=== PATIENT | male | born 1970 | race African-American/Black ===

== ENCOUNTER 2022-08-24 17:57 | Inpatient (IN) | payer OTHER ==
[~2022-08-24] VITALS: Ht 170.2 cm; Wt 48.5 kg
[2022-08-24] MEDS ORDERED: NS 500 ML IV ONE (19:40)
[2022-08-24] MEDS ORDERED: oxyCODONE 5MG TAB PO ONE (19:40)
[2022-08-24] MEDS ORDERED: SODIUM CHLORIDE 0.9% INJ 10 ML SYR IV PRN (19:55)
[2022-08-24 20:43] LABS: BASO % 0.2 % (0.0-1.0); EOS # 0.1 10^3/uL (0.0-0.5); EOS % 0.7 % (0.0-3.0); HEMATOCRIT 33.5 % (42.0-52.0); HEMOGLOBIN 11.1 g/dl (13.5-17.5); LYMPH # 1.4 10^3/uL (1.5-5.0); LYMPH % 17.6 % (24.0-44.0); MEAN CORPUSCULAR HGB CONC 33.1 g/dl (32.0-36.5); MEAN CORPUSCULAR VOLUME 102.8 fl (80.0-96.0); MONO % 12.3 % (2.0-8.0); NEUTROPHILS # 5.6 10^3/uL (1.5-8.5); PLATELET COUNT, AUTOMATED 241 10^3/uL (150-450); RED BLOOD COUNT 3.26 10^6/uL (4.30-6.10); WHITE BLOOD COUNT 8.1 10^3/uL (4.0-10.0)
[2022-08-24 21:16] LABS: LIPASE 16 U/L (12-53)
[2022-08-24 21:17] LABS: CK-MB VALUE MASS 2.5 NG/ML (<3.6)
[2022-08-24 21:18] LABS: CPK CREATINE PHOSPHOKINASE 30 U/L (46-171); MB/CK RELATIVE INDEX 8.33 (< OR =4)
[2022-08-24 21:52] LABS: ALBUMIN 2.7 G/DL (3.2-5.2); ALKALINE PHOSPHATASE 102 U/L (46-116); ALT/SGPT < 9 U/L (7.0-40); AST/SGOT 20 U/L (<34); BILIRUBIN,DIRECT 0.1 MG/DL (<0.4); BILIRUBIN,TOTAL 0.3 MG/DL (0.3-1.2); BLOOD UREA NITROGEN 35 MG/DL (9-23); CARBON DIOXIDE LEVEL 29 MMOL/L (20-31); CHLORIDE LEVEL 99 MMOL/L (98-107); CREATININE FOR GFR 1.35 MG/DL (0.70-1.30); GLOMERULAR FILTRATION RATE > 60.0 (>56); GLUCOSE, FASTING 101 MG/DL (60-100); SODIUM LEVEL 134 MMOL/L (136-145); TOTAL PROTEIN 7.1 G/DL (5.7-8.2)
[2022-08-24 22:14] LABS: CK-MB VALUE MASS 2.9 NG/ML (<3.6)
[2022-08-24 22:15] LABS: MB/CK RELATIVE INDEX 7.83 (< OR =4)
[2022-08-24 22:18] LABS: CALCIUM LEVEL 16.4 MG/DL (8.5-10.1)
[2022-08-25] VITALS (29 sets, daily range): BP systolic 103–149; BP diastolic 59–87; TEMP 97–99; O2SAT 86–100
[2022-08-25] LABS: RSV AMPLIFICATION NEGATIVE (NEGATIVE)
[2022-08-25] MEDS ORDERED: HYDROMORPHONE HCL 0.5 MG/ 0.5 ML SYRINGE IV PRN ×2 (00:50→16:10)
[2022-08-25] MEDS ORDERED: NS 1,000 ML IV ONE (01:15)
[2022-08-25] MEDS ORDERED: ZOLEDRONIC ACID 4 MG in IV 1 EA IV ONE (02:00)
[2022-08-25] MEDS: NS 1,000 ML IV SCH ×4 (03:05→22:25)
[2022-08-25] MEDS: HYDROMORPHONE HCL 0.5 MG/ 0.5 ML SYRINGE IV PRN ×6 (03:21→23:56)
[2022-08-25] MEDS: ONDANSETRON 4MG 2ML VIAL IV PRN ×3 (03:49→19:28)
[2022-08-25] MEDS ORDERED: SUCR1TAB56 PO (06:58)
[2022-08-25] MEDS ORDERED: BENZ-18 PO (06:58)
[2022-08-25] MEDS ORDERED: MIRT1TAB PO (06:58)
[2022-08-25] MEDS ORDERED: FAMO1TAB11 PO (06:58)
[2022-08-25] MEDS ORDERED: OMEP40CA4 PO (06:58)
[2022-08-25] MEDS ORDERED: OXYC10TA12 PO (06:58)
[2022-08-25] MEDS ORDERED: MELA3TAB30 PO (06:58)
[2022-08-25] MEDS ORDERED: LORA-674 PO (06:58)
[2022-08-25] MEDS ORDERED: ATOR80TA59 PO (06:58)
[2022-08-25] MEDS ORDERED: MAGN400T35 PO (06:58)
[2022-08-25] MEDS ORDERED: HOME MED LIST COMPLETE! XX SCH (07:00)
[2022-08-25 07:06] LABS: BLOOD UREA NITROGEN 34 MG/DL (9-23); CARBON DIOXIDE LEVEL 24 MMOL/L (20-31); CHLORIDE LEVEL 106 MMOL/L (98-107); CREATININE FOR GFR 1.34 MG/DL (0.70-1.30); GLOMERULAR FILTRATION RATE > 60.0 (>56); GLUCOSE, FASTING 88 MG/DL (60-100); POTASSIUM SERUM 4.3 MMOL/L (3.5-5.1); SODIUM LEVEL 136 MMOL/L (136-145)
[2022-08-25] MEDS: ASPIRIN 81MG CHEW TABLET PEG SCH ×2 (09:00→09:16)
[2022-08-25] MEDS: METOPROLOL TART 12.5 MG PER 1/2 TAB PO SCH ×2 (09:00→09:17)
[2022-08-25] MEDS ORDERED: CALCITONIN SALMON (MIACALCIN) 400INTERNATIONAL UNITS/2ML VIAL SC ONE (09:00)
[2022-08-25] MEDS: HEPARIN SOD (PORCINE) 5000UNITS/ML 1ML VIAL/SYRINGE SC SCH ×3 (09:16→21:51)
[2022-08-25] MEDS: PANTOPRAZOLE 40MG VIAL IV SCH (11:24)
[2022-08-25] MEDS ORDERED: GLUCAGON INJ 1MG VIAL SC PRN (11:30)
[2022-08-25] MEDS ORDERED: DEXTROSE 50% 50ML SYRINGE IV PRN (11:30)
[2022-08-25] MEDS ORDERED: GLUCOSE 4GM CHEW TABLET PO PRN (11:30)
[2022-08-25 12:17] LABS: BLOOD UREA NITROGEN 36 MG/DL (9-23); CALCIUM LEVEL 13.3 MG/DL (8.5-10.1); CARBON DIOXIDE LEVEL 26 MMOL/L (20-31); CHLORIDE LEVEL 106 MMOL/L (98-107); CREATININE FOR GFR 1.36 MG/DL (0.70-1.30); GLOMERULAR FILTRATION RATE > 60.0 (>56); GLUCOSE, FASTING 89 MG/DL (60-100); SODIUM LEVEL 138 MMOL/L (136-145)
[2022-08-25 12:19] LABS: TOTAL PROTEIN 6.2 G/DL (5.7-8.2)
[2022-08-25] MEDS ORDERED: CALCITONIN SALMON (MIACALCIN) 400INTERNATIONAL UNITS/2ML VIAL SQ ONE ×2 (13:00→21:00)
[2022-08-25 15:28] LABS: SOURCE, BODY FLUID pH PLEURAL
[2022-08-25] MEDS: MIRALAX *UNIT DOSE* 17GM PACKET GT SCH ×2 (15:53→17:26)
[2022-08-25 15:57] LABS: APPEARANCE, BODY FLUID HAZY (CLEAR); PLEURAL FL COLOR YELLOW (COLORLESS); SOURCE, BODY FLUID PLEURAL
[2022-08-25] MEDS ORDERED: ACETAMINOPHEN TAB 650MG DOSE (2X325MG) PO PRN (16:05)
[2022-08-25] MEDS ORDERED: ACETAMINOPHEN TAB 650MG DOSE (2X325MG) FT PRN (16:10)
[2022-08-25] MEDS ORDERED: SUCRALFATE 1 GM TAB PO PRN (16:15)
[2022-08-25] MEDS: NICOTINE 14 MG/24 HR TRANSDERMAL TD SCH (17:26)
[2022-08-25] MEDS: MIRTAZAPINE 7.5MG PER 1/2 TABLET GT SCH (21:50)
[2022-08-25] MEDS: ATORVASTATIN 20 MG TAB GT SCH (21:50)
[2022-08-25] MEDS: SENOKOT S TAB GT SCH (21:50)
[2022-08-26] VITALS (12 sets, daily range): BP systolic 103–145; BP diastolic 58–80; TEMP 97.3–98.3; O2SAT 91–97
[2022-08-26] MEDS: HYDROMORPHONE HCL 0.5 MG/ 0.5 ML SYRINGE IV PRN ×2 (03:30→08:54)
[2022-08-26 06:08] LABS: SOURCE, BODY FLUID ALBUMIN PLEURAL
[2022-08-26 06:13] LABS: SOURCE, BODY FLUID GLUCOSE PLEURAL; SOURCE, BODY FLUID TRIG PLEURAL; TRIGLYCERIDE, BODY FLUID 56 MG/DL (NOT ESTABLISHED)
[2022-08-26 06:15] LABS: AMYLASE, BODY FLUID 32 U/L (NOT ESTABLISHED); LDH, BODY FLUID 533 U/L (NOT ESTABLISHED); SOURCE, BODY FLUID AMYLASE PLEURAL; SOURCE, BODY FLUID LDH PLEURAL
[2022-08-26 06:16] LABS: CHOLESTEROL, BODY FLUID 93 MG/DL (NOT ESTABLISHED); SOURCE, BODY FLUID CHOL PLEURAL; SOURCE, BODY FLUID TOT PROTEIN PLEURAL; TOTAL PROTEIN, BODY FLUID 4.8 G/DL (NOT ESTABLISHED)
[2022-08-26] MEDS: HEPARIN SOD (PORCINE) 5000UNITS/ML 1ML VIAL/SYRINGE SC SCH ×3 (06:20→20:34)
[2022-08-26 06:46] LABS: HEMATOCRIT 31.2 % (42.0-52.0); HEMOGLOBIN 10.1 g/dl (13.5-17.5); MEAN CORPUSCULAR HEMOGLOBIN 33.9 pg (27.0-33.0); MEAN CORPUSCULAR HGB CONC 32.4 g/dl (32.0-36.5); MEAN CORPUSCULAR VOLUME 104.7 fl (80.0-96.0); PLATELET COUNT, AUTOMATED 197 10^3/uL (150-450); RED BLOOD COUNT 2.98 10^6/uL (4.30-6.10); WHITE BLOOD COUNT 7.6 10^3/uL (4.0-10.0)
[2022-08-26 07:08] LABS: BLOOD UREA NITROGEN 33 MG/DL (9-23); CALCIUM LEVEL 10.8 MG/DL (8.5-10.1); CARBON DIOXIDE LEVEL 22 MMOL/L (20-31); CHLORIDE LEVEL 107 MMOL/L (98-107); CREATININE FOR GFR 1.44 MG/DL (0.70-1.30); GLOMERULAR FILTRATION RATE > 60.0 (>56); GLUCOSE, FASTING 113 MG/DL (60-100); MAGNESIUM LEVEL 1.3 MG/DL (1.8-2.4); POTASSIUM SERUM 4.3 MMOL/L (3.5-5.1); SODIUM LEVEL 136 MMOL/L (136-145)
[2022-08-26] MEDS: ONDANSETRON 4MG 2ML VIAL IV PRN (08:52)
[2022-08-26] MEDS: NS 1,000 ML IV SCH (08:52)
[2022-08-26] MEDS: NICOTINE 14 MG/24 HR TRANSDERMAL TD SCH (08:53)
[2022-08-26] MEDS: MIRALAX *UNIT DOSE* 17GM PACKET GT SCH (08:53)
[2022-08-26] MEDS: PANTOPRAZOLE 40MG VIAL IV SCH (08:53)
[2022-08-26] MEDS: SENOKOT S TAB GT SCH ×2 (08:54→20:34)
[2022-08-26] MEDS ORDERED: oxyCODONE 5MG TAB PO PRN ×2 (11:00)
[2022-08-26] MEDS ORDERED: oxyCODONE 5MG TAB PEG PRN (15:20)
[2022-08-26 15:22] LABS: VITAMIN B12 LEVEL 1085 PG/ML (211-911)
[2022-08-26 15:25] LABS: FOLATE 16.76 NG/ML (>5.4)
[2022-08-26] MEDS: ASPIRIN 81MG CHEW TABLET PEG SCH (15:42)
[2022-08-26] MEDS: MAG SULF 1GM/100ML (MAG RUN) 1 GM in IV 1 EA IV SCH ×4 (15:42→19:26)
[2022-08-26] MEDS: oxyCODONE 5MG TAB PEG PRN ×2 (15:43→20:34)
[2022-08-26] MEDS ORDERED: NALOXONE INJ 0.4MG/1ML VIAL IV PRN (16:50)
[2022-08-26] MEDS: METOPROLOL TART 12.5 MG PER 1/2 TAB PEG SCH (20:34)
[2022-08-26] MEDS: ATORVASTATIN 20 MG TAB GT SCH (20:34)
[2022-08-26] MEDS: MIRTAZAPINE 7.5MG PER 1/2 TABLET GT SCH (20:34)
[2022-08-27] VITALS (10 sets, daily range): BP systolic 107–128; BP diastolic 63–77; TEMP 97.7–100.5; O2SAT 85–95
[2022-08-27] MEDS: NS 1,000 ML IV SCH (00:34)
[2022-08-27] MEDS: oxyCODONE 5MG TAB PEG PRN ×3 (01:02→11:30)
[2022-08-27 06:11] LABS: HEMATOCRIT 32.6 % (42.0-52.0); HEMOGLOBIN 10.2 g/dl (13.5-17.5); MEAN CORPUSCULAR HEMOGLOBIN 33.2 pg (27.0-33.0); MEAN CORPUSCULAR HGB CONC 31.3 g/dl (32.0-36.5); MEAN CORPUSCULAR VOLUME 106.2 fl (80.0-96.0); PLATELET COUNT, AUTOMATED 171 10^3/uL (150-450); RED BLOOD COUNT 3.07 10^6/uL (4.30-6.10); WHITE BLOOD COUNT 8.7 10^3/uL (4.0-10.0)
[2022-08-27] MEDS: HEPARIN SOD (PORCINE) 5000UNITS/ML 1ML VIAL/SYRINGE SC SCH ×3 (06:38→22:30)
[2022-08-27 07:41] LABS: BLOOD UREA NITROGEN 26 MG/DL (9-23); CARBON DIOXIDE LEVEL 22 MMOL/L (20-31); CHLORIDE LEVEL 105 MMOL/L (98-107); CREATININE FOR GFR 1.34 MG/DL (0.70-1.30); GLOMERULAR FILTRATION RATE > 60.0 (>56); GLUCOSE, FASTING 120 MG/DL (60-100); MAGNESIUM LEVEL 1.9 MG/DL (1.8-2.4); PHOSPHORUS LEVEL 1.2 MG/DL (2.5-4.9); POTASSIUM SERUM 3.5 MMOL/L (3.5-5.1); SODIUM LEVEL 133 MMOL/L (136-145)
[2022-08-27] MEDS ORDERED: METOCLOPRAMIDE 10MG TAB PO SCH (09:00)
[2022-08-27] MEDS: ONDANSETRON 4MG 2ML VIAL IV PRN (09:55)
[2022-08-27] MEDS ORDERED: SODIUM PHOSPHATE INJ 30 MMOL in D5W 500 ML IV ONE (11:00)
[2022-08-27] MEDS: MIRALAX *UNIT DOSE* 17GM PACKET GT SCH (11:29)
[2022-08-27] MEDS: NICOTINE 14 MG/24 HR TRANSDERMAL TD SCH (11:29)
[2022-08-27] MEDS: PANTOPRAZOLE 40MG VIAL IV SCH (11:30)
[2022-08-27] MEDS: SENOKOT S TAB GT SCH ×2 (11:31→21:00)
[2022-08-27] MEDS: ASPIRIN 81MG CHEW TABLET PEG SCH (11:31)
[2022-08-27] MEDS: METOPROLOL TART 12.5 MG PER 1/2 TAB PEG SCH (11:38)
[2022-08-27] MEDS ORDERED: MORPHINE 4 MG/ML 1ML VIAL IV ONE (13:15)
[2022-08-27] MEDS: METOCLOPRAMIDE INJ 10MG/2ML VIAL IV PRN ×2 (13:23→20:59)
[2022-08-27] MEDS ORDERED: METOPROLOL 5 MG/5 ML VIAL IV STA (19:04)
[2022-08-27 19:24] LABS: BASO % 0.2 % (0.0-1.0); EOS % 0.1 % (0.0-3.0); HEMATOCRIT 34.5 % (42.0-52.0); HEMOGLOBIN 11.1 g/dl (13.5-17.5); LYMPH # 0.7 10^3/uL (1.5-5.0); LYMPH % 7.1 % (24.0-44.0); MEAN CORPUSCULAR HEMOGLOBIN 33.7 pg (27.0-33.0); MEAN CORPUSCULAR HGB CONC 32.2 g/dl (32.0-36.5); MEAN CORPUSCULAR VOLUME 104.9 fl (80.0-96.0); MONO # 0.7 10^3/uL (0.0-0.8); MONO % 6.4 % (2.0-8.0); NEUTROPHILS # 8.9 10^3/uL (1.5-8.5); NEUTROPHILS % 85.7 % (36.0-66.0); PLATELET COUNT, AUTOMATED 190 10^3/uL (150-450); RED BLOOD COUNT 3.29 10^6/uL (4.30-6.10); WHITE BLOOD COUNT 10.4 10^3/uL (4.0-10.0)
[2022-08-27] MEDS ORDERED: HYDROMORPHONE HCL 0.5 MG/ 0.5 ML SYRINGE IV PRN (19:25)
[2022-08-27] MEDS ORDERED: D5W/LR 1,000 ML IV SCH (19:25)
[2022-08-27] MEDS: AMPICILLIN SOD/SULBACTAM SOD 3 GM in D5W MINI-BAG PLUS 100 ML IV SCH (20:59)
[2022-08-27] MEDS: MIRTAZAPINE 7.5MG PER 1/2 TABLET GT SCH (20:59)
[2022-08-27] MEDS: ATORVASTATIN 20 MG TAB GT SCH (21:00)
[2022-08-27] MEDS ORDERED: METOPROLOL TART 25 MG TABLET PEG SCH (21:00)
[2022-08-27] MEDS ORDERED: DOXYCYCLINE HYCLATE 100 MG in D5W MINI-BAG PLUS 100 ML IV SCH (21:00)
[2022-08-27] MEDS: HYDROmorphone HCL 2MG/ML 1ML VIAL IV PRN (21:22)
[2022-08-28] VITALS (25 sets, daily range): BP systolic 86–136; BP diastolic 56–78; TEMP 97–98.3; O2SAT 88–100
[2022-08-28] MEDS: ONDANSETRON 4MG 2ML VIAL IV PRN (01:55)
[2022-08-28] MEDS: AMPICILLIN SOD/SULBACTAM SOD 3 GM in D5W MINI-BAG PLUS 100 ML IV SCH ×3 (01:55→18:37)
[2022-08-28] MEDS: HYDROmorphone HCL 2MG/ML 1ML VIAL IV PRN ×4 (01:56→21:16)
[2022-08-28 05:40] LABS: HEMATOCRIT 30.1 % (42.0-52.0); MEAN CORPUSCULAR HGB CONC 33.2 g/dl (32.0-36.5); MEAN CORPUSCULAR VOLUME 102.4 fl (80.0-96.0); PLATELET COUNT, AUTOMATED 158 10^3/uL (150-450); RED BLOOD COUNT 2.94 10^6/uL (4.30-6.10); WHITE BLOOD COUNT 12.7 10^3/uL (4.0-10.0)
[2022-08-28] MEDS: HEPARIN SOD (PORCINE) 5000UNITS/ML 1ML VIAL/SYRINGE SC SCH ×3 (06:11→21:15)
[2022-08-28] MEDS: METOCLOPRAMIDE INJ 10MG/2ML VIAL IV PRN ×2 (06:11→21:15)
[2022-08-28 06:13] LABS: CALCIUM LEVEL 8.2 MG/DL (8.5-10.1); CREATININE FOR GFR 1.86 MG/DL (0.70-1.30); GLOMERULAR FILTRATION RATE 49.3 (>56); MAGNESIUM LEVEL 1.4 MG/DL (1.8-2.4); POTASSIUM SERUM 3.4 MMOL/L (3.5-5.1)
[2022-08-28] MEDS ORDERED: MAGNESIUM OXIDE 400MG TAB (MAG-OX) GT ONE (08:00)
[2022-08-28 08:12] LABS: PHOSPHORUS LEVEL 3.5 MG/DL (2.5-4.9)
[2022-08-28] MEDS: MAG SULF 1GM/100ML (MAG RUN) 1 GM in IV 1 EA IV SCH ×2 (08:58→10:53)
[2022-08-28] MEDS: METOPROLOL TART 12.5 MG PER 1/2 TAB PEG SCH ×2 (09:00→21:17)
[2022-08-28] MEDS: PANTOPRAZOLE 40MG VIAL IV SCH (10:52)
[2022-08-28] MEDS: SENOKOT S TAB GT SCH ×2 (10:54→21:17)
[2022-08-28] MEDS: ASPIRIN 81MG CHEW TABLET PEG SCH (10:54)
[2022-08-28] MEDS: MAGNESIUM OXIDE 400MG TAB (MAG-OX) GT SCH ×2 (10:55→21:17)
[2022-08-28] MEDS: MIRALAX *UNIT DOSE* 17GM PACKET GT SCH (10:59)
[2022-08-28] MEDS: NICOTINE 14 MG/24 HR TRANSDERMAL TD SCH (11:00)
[2022-08-28 11:34] LABS: TOTAL PROTEIN 5.4 G/DL (5.7-8.2)
[2022-08-28] MEDS: KCL 10MEQ/100ML SWI (KRUN) 10 MEQ in IV 1 EA IV SCH ×2 (12:24→15:16)
[2022-08-28 15:30] LABS: PH BODY FLUID 7.581 UNITS (NOT ESTABLISHED); SOURCE, BODY FLUID pH PLEURAL
[2022-08-28 16:10] LABS: APPEARANCE, BODY FLUID CLOUDY (CLEAR); PLEURAL FL COLOR AMBER (COLORLESS); SOURCE, BODY FLUID PLEURAL
[2022-08-28 19:51] LABS: SOURCE, BODY FLUID ALBUMIN PLEURAL
[2022-08-28 19:56] LABS: SOURCE, BODY FLUID GLUCOSE PLEURAL; SOURCE, BODY FLUID TRIG PLEURAL; TRIGLYCERIDE, BODY FLUID 40 MG/DL (NOT ESTABLISHED)
[2022-08-28 19:58] LABS: AMYLASE, BODY FLUID 20 U/L (NOT ESTABLISHED); LDH, BODY FLUID 496 U/L (NOT ESTABLISHED); SOURCE, BODY FLUID AMYLASE PLEURAL; SOURCE, BODY FLUID LDH PLEURAL
[2022-08-28 19:58] LABS: SOURCE, BODY FLUID TOT PROTEIN PLEURAL; TOTAL PROTEIN, BODY FLUID 3.6 G/DL (NOT ESTABLISHED)
[2022-08-28 19:59] LABS: CHOLESTEROL, BODY FLUID 62 MG/DL (NOT ESTABLISHED); SOURCE, BODY FLUID CHOL PLEURAL
[2022-08-28] MEDS: ATORVASTATIN 20 MG TAB GT SCH (21:15)
[2022-08-28] MEDS: MIRTAZAPINE 7.5MG PER 1/2 TABLET GT SCH (21:15)
[2022-08-29] MEDS: AMPICILLIN SOD/SULBACTAM SOD 3 GM in D5W MINI-BAG PLUS 100 ML IV SCH ×2 (00:42→06:32)
[2022-08-29] MEDS: HYDROmorphone HCL 2MG/ML 1ML VIAL IV PRN ×3 (00:42→12:08)
[2022-08-29 00:50] VITALS: BP 105/66; TEMP 97.9; O2SAT 97
[2022-08-29 04:27] VITALS: BP 125/69; TEMP 97.6; O2SAT 93
[2022-08-29 05:41] LABS: HEMATOCRIT 29.6 % (42.0-52.0); MEAN CORPUSCULAR HEMOGLOBIN 33.3 pg (27.0-33.0); MEAN CORPUSCULAR HGB CONC 33.8 g/dl (32.0-36.5); MEAN CORPUSCULAR VOLUME 98.7 fl (80.0-96.0); PLATELET COUNT, AUTOMATED 191 10^3/uL (150-450)
[2022-08-29 06:03] LABS: CALCIUM LEVEL 7.7 MG/DL (8.5-10.1); CREATININE FOR GFR 2.11 MG/DL (0.70-1.30); GLOMERULAR FILTRATION RATE 42.6 (>56); MAGNESIUM LEVEL 1.8 MG/DL (1.8-2.4); POTASSIUM SERUM 3.3 MMOL/L (3.5-5.1)
[2022-08-29] MEDS ORDERED: KCL 10MEQ/100ML SWI (KRUN) 10 MEQ in IV 1 EA IV ONE (06:15)
[2022-08-29] MEDS ORDERED: POTASSIUM CHLORIDE 10% LIQ 20MEQ/15ML UDC FT ONE (06:15)
[2022-08-29] MEDS: HEPARIN SOD (PORCINE) 5000UNITS/ML 1ML VIAL/SYRINGE SC SCH (06:33)
[2022-08-29 07:39] VITALS: BP 100/56; TEMP 97.8; O2SAT 95
[2022-08-29 07:43] VITALS: BP 125/70; TEMP 97.1; O2SAT 94
[2022-08-29] MEDS ORDERED: SODIUM CHLORIDE 0.9% INJ 10 ML SYR IV PRN (08:35)
[2022-08-29] MEDS: MIRALAX *UNIT DOSE* 17GM PACKET GT SCH (08:58)
[2022-08-29] MEDS: NICOTINE 14 MG/24 HR TRANSDERMAL TD SCH (08:58)
[2022-08-29] MEDS: PANTOPRAZOLE 40MG VIAL IV SCH (08:58)
[2022-08-29] MEDS: ONDANSETRON 4MG 2ML VIAL IV PRN (08:58)
[2022-08-29] MEDS: SENOKOT S TAB GT SCH (09:00)
[2022-08-29] MEDS: METOPROLOL TART 12.5 MG PER 1/2 TAB PEG SCH (09:00)
[2022-08-29] MEDS ORDERED: LIDOCAINE 5% (LIDODERM) PATCH TD SCH (09:00)
[2022-08-29] MEDS ORDERED: SODIUM CHLORIDE 0.9% INJ 10 ML SYR IV SCH (09:00)
[2022-08-29] MEDS: ASPIRIN 81MG CHEW TABLET PEG SCH (09:00)
[2022-08-29] MEDS: MAGNESIUM OXIDE 400MG TAB (MAG-OX) GT SCH (09:00)
[2022-08-29] MEDS ORDERED: MORPHINE 2 MG/ML 1ML VIAL IV PRN (11:05)
[2022-08-29 11:42] VITALS: BP 123/64; TEMP 97.6; O2SAT 96
[2022-08-29] MEDS: METOCLOPRAMIDE INJ 10MG/2ML VIAL IV PRN (12:08)
[2022-08-29] MEDS ORDERED: SCOPOLAMINE 1MG TRANSDERMAL PATCH TOP PRN (14:35)
[2022-08-29] MEDS ORDERED: LORazepam 1 MG TAB PO PRN (14:35)
[2022-08-29] MEDS ORDERED: oxyCODONE 5MG TAB PO PRN ×2 (14:40→22:25)
[2022-08-29] MEDS: ONDANSETRON 4MG ORAL DISINTEGRATING TAB PO PRN (15:18)
[2022-08-29] MEDS: oxyCODONE 5MG TAB PO PRN ×3 (15:18→22:56)
[2022-08-29] MEDS ORDERED: AMPICILLIN SOD/SULBACTAM SOD 3 GM in D5W MINI-BAG PLUS 100 ML IV SCH (18:00)
[2022-08-29] MEDS: QUEtiapine FUMARATE 25 MG TAB PO PRN (22:56)
[2022-08-30] MEDS: oxyCODONE 5MG TAB PO PRN ×4 (04:32→21:06)
[2022-08-30] MEDS: LIDOCAINE 5% (LIDODERM) PATCH TD SCH (08:55)
[2022-08-30] MEDS: ONDANSETRON 4MG ORAL DISINTEGRATING TAB PO PRN (09:06)
[2022-08-30] MEDS: QUEtiapine FUMARATE 25 MG TAB PO PRN (21:06)
[2022-08-30] MEDS: LORazepam 1 MG TAB GT PRN (23:10)
[2022-08-30] MEDS: IPRATROPIUM 0.5MG/ALBUTEROL 2.5MG INH SOL UD 3ML (DUONEB) NEB PRN (23:16)
[2022-08-31] MEDS: oxyCODONE 5MG TAB PO PRN (04:25)
[2022-08-31] MEDS: LORazepam 1 MG TAB GT PRN (04:25)
[2022-08-31] MEDS: IPRATROPIUM 0.5MG/ALBUTEROL 2.5MG INH SOL UD 3ML (DUONEB) NEB PRN (04:32)
[2022-08-31] MEDS: LIDOCAINE 5% (LIDODERM) PATCH TD SCH (09:00)
[2022-08-31] MEDS ORDERED: MORPHINE 2 MG/ML 1ML VIAL IV PRN (10:55)
[2022-08-31] MEDS ORDERED: LORazepam 2 MG/ML 1ML VIAL IV PRN (10:55)
[2022-08-31] MEDS ORDERED: MORPHINE 10MG/0.5ML ORAL CONCENTRATE SOLUTION U/D SL PRN (10:55)
== END 2022-08-31 14:30 | disposition expired | DRG 425 ==
LOC: M ED 17:57 → M ED INP 08-25 00:48 → M PCU 08-25 02:33 → M MS5PR 08-29 18:26
PROVIDERS: ADMIT Internal Medicine; ATTEND Internal Medicine
PROC: 0W9B3ZX Drainage of Left Pleural Cavity, Percutaneous Approach, Diagnostic (ICD-10-PCS; 2022-08-25)
PROC: B246ZZZ Ultrasonography of Right and Left Heart (ICD-10-PCS; principal; 2022-08-27)
PROC: 0W993ZZ Drainage of Right Pleural Cavity, Percutaneous Approach (ICD-10-PCS; 2022-08-28)
DX: E83.52 Hypercalcemia (principal); J96.01 Acute respiratory failure with hypoxia; J69.0 Pneumonitis due to inhalation of food and vomit; I50.43 Acute on chronic combined systolic (congestive) and diastolic (congestive) heart failure; G93.41 Metabolic encephalopathy; J91.0 Malignant pleural effusion; E43 Unspecified severe protein-calorie malnutrition; R64 Cachexia; N17.9 Acute kidney failure, unspecified; I31.39 Other pericardial effusion (noninflammatory); C79.51 Secondary malignant neoplasm of bone; E87.20 Acidosis, unspecified; I13.0 Hypertensive heart and chronic kidney disease with heart failure and stage 1 through stage 4 chronic kidney disease, or unspecified chronic kidney disease; I27.20 Pulmonary hypertension, unspecified; I42.6 Alcoholic cardiomyopathy; Z93.1 Gastrostomy status; R13.19 Other dysphagia; C15.9 Malignant neoplasm of esophagus, unspecified; Z51.5 Encounter for palliative care; Z66 Do not resuscitate; I25.10 Atherosclerotic heart disease of native coronary artery without angina pectoris; E87.1 Hypo-osmolality and hyponatremia; F17.210 Nicotine dependence, cigarettes, uncomplicated; N40.0 Benign prostatic hyperplasia without lower urinary tract symptoms; G89.3 Neoplasm related pain (acute) (chronic); K59.03 Drug induced constipation; T40.2X5A Adverse effect of other opioids, initial encounter; I25.5 Ischemic cardiomyopathy; E87.6 Hypokalemia; F10.20 Alcohol dependence, uncomplicated; F12.90 Cannabis use, unspecified, uncomplicated; N18.9 Chronic kidney disease, unspecified; R11.2 Nausea with vomiting, unspecified; D63.0 Anemia in neoplastic disease; D53.9 Nutritional anemia, unspecified; Z92.3 Personal history of irradiation; Z95.5 Presence of coronary angioplasty implant and graft; Z79.899 Other long term (current) drug therapy; Z68.1 Body mass index [BMI] 19.9 or less, adult; Z92.21 Personal history of antineoplastic chemotherapy; Z74.01 Bed confinement status; Z95.810 Presence of automatic (implantable) cardiac defibrillator; E83.39 Other disorders of phosphorus metabolism; E83.42 Hypomagnesemia